=== PATIENT | female | born 1985 | race Caucasian/White ===

== ENCOUNTER → 2021-05-16 | Outpatient (CLI) | payer OTHER ==
--- NOTE | 2021-05-16 16:20 | RAD ---
PQRS Compliance Statement: One or more of the following individualized dose reduction techniques were utilized for this examinat ion: 1. Automated exposure control 2. Adjustment of the mA and/or kV according to patient size 3. Use of iterative reconstruction technique CT MAXILLOFACIAL WITHOUT CONTRAST 05/16/2021 3:29 PM Indication: Left parotid gland enlargement COMPARISON: None available. TECHNIQUE: Multiple axial CT images of the maxillofacial structures were obtained with intravenous co ntrast. Coronal and sagittal reformats are provided. FINDINGS: Evaluation of soft tissues is limited without intravenous contrast. Orbits are normal in appearance. Globes are spherical and contour. No lens dislocation. Intraconal and extra coronal fat is normal. No subcutaneous soft tissue abnormality is identified. Teacher Assistant space appears intact bilaterally. The re is a left temporomandibular joint effusion. There may be ossific bodies within the joint space, li mited in evaluation without intravenous contrast. There are coarse calcifications identified medial t o the left mandibular condyle which could be within the deep spaces left parotid gland versus within the left temporal ventricular joint. Nasopharynx is normal in appearance. Visualized posterior fossa and brain parenchyma appear normal. 75 g, oral cavity and floor of mouth are normal. Mild fullness al chrissy the right piriform sinus. Limited evaluation for cervical lymphadenopathy. IMPRESSION: 1. Parotid glands appear symmetric, although there is calcification identified along the deep lateral left parotid versus along the left temporomandibular joint space. Consideration may be given for lef t temporal ventricular joint effusion with ossific bodies. Correlate with TMJ arthropathy. 2. Mild fullness of the right piriform sinus, nonspecific and probably profiled. CT neck with contras t could be of benefit for further characterization. Electronically signed by: María Dixon MD (05/16/2021 4:18 PM) [facility]
== END ==
LOC: CT 15:24
PROVIDERS: ATTEND Otolaryngology
DX: K11.1 Hypertrophy of salivary gland (principal); R59.0 Localized enlarged lymph nodes; M26.659 Arthropathy of unspecified temporomandibular joint
CPT/HCPCS: 70486